=== PATIENT | female | born 1960 | race Caucasian/White ===

== ENCOUNTER 2019-08-16 06:06 | Day surgery (SDC) | payer BC ==
[~2019-08-16] VITALS: Ht 167.6 cm; Wt 69.9 kg
[2019-08-16] MEDS ORDERED: ONDANSETRON HCL 4 MG/2 ML VIAL IVP PRN (08:30)
[2019-08-16] MEDS ORDERED: fentaNYL CITRATE/PF 100 MCG/2 ML AMP IVP PRN (08:30)
[2019-08-16] MEDS ORDERED: DEXAMETHASONE SOD PHOSPHATE 4 MG/ML VIAL ONE (10:00)
[2019-08-16] MEDS ORDERED: NS 1000 ML IV.SOLN IV ONE (10:00)
[2019-08-16] MEDS ORDERED: NEOSTIGMINE METHYLSULFATE 1 MG/ML, 10 ML VIAL ONE (10:00)
[2019-08-16] MEDS ORDERED: LIDOCAINE/EPI 1% 1:100000 20 ML VIAL INJ ONE (10:00)
[2019-08-16] MEDS ORDERED: MIDAZOLAM HCL 5 MG/ML VIAL (VERSED) IV ONE (10:00)
[2019-08-16] MEDS ORDERED: GLYCOPYRROLATE 0.2 MG/ML VIAL ONE (10:00)
[2019-08-16] MEDS ORDERED: EPINEPHrine 1 MG/ML AMP ONE (10:00)
[2019-08-16] MEDS ORDERED: OXYMETAZOLINE HCL 0.05% NASAL SPRAY NS ONE (10:00)
[2019-08-16] MEDS ORDERED: PROPOFOL 200MG/ 20ML VIAL (DIPRIVAN) IV ONE (10:00)
[2019-08-16] MEDS ORDERED: ROCURONIUM BROMIDE 10 MG/ML (ZEMURON) ONE (10:00)
[2019-08-16] MEDS ORDERED: SEVOFLURANE 15 MIN GAS INH ONE (10:00)
[2019-08-16] MEDS ORDERED: ONDANSETRON HCL 4 MG/2 ML VIAL ONE (10:00)
[2019-08-16] MEDS ORDERED: fentaNYL CITRATE/PF 100 MCG/2 ML AMP ONE ×2 (10:00→10:22)
[2019-08-16] MEDS ORDERED: MUPIROCIN 2% TOPICAL OINTMENT 22 GM TP ONE (10:00)
[2019-08-16] MEDS ORDERED: LR 1,000 ML IV.SOLN IV ONE (10:00)
[2019-08-16] MEDS: fentaNYL CITRATE/PF 100 MCG/2 ML AMP IVP PRN ×2 (10:21→10:33)
[2019-08-16] MEDS ORDERED: HYDROcodone/ACETAMIN 5-325 MG TAB (NORCO/ VICODIN) PO ONE (11:15)
[2019-08-16] MEDS ORDERED: HYDROcodone/ACETAMIN 5-325 MG TAB (NORCO/ VICODIN) ONE (11:31)
[2019-08-16 12:33] VITALS: BP_SYST 143
== END 2019-08-16 12:20 | disposition home or self-care (01) ==
LOC: SDS 06:06
PROVIDERS: ATTEND Otolaryngology
DX: J32.4 Chronic pansinusitis (principal); J34.2 Deviated nasal septum; J30.1 Allergic rhinitis due to pollen; I10 Essential (primary) hypertension; Z98.84 Bariatric surgery status
CPT/HCPCS: 30140; 30520; 31256; 88305; 88311; J0171; J1100; J2250; J2405; J2704; J2710; J3010; J3490; J7030; J7120